=== PATIENT | male | born 1950 | race Caucasian/White ===

== ENCOUNTER → 2016-11-24 | Day surgery (SDC) | payer MEDICARE, OTHER ==
[~2016-11-24] VITALS: Ht 177.8 cm; Wt 100.0 kg
[2016-11-24] VITALS (7 sets, daily range): BP systolic 106–148; BP diastolic 60–79; PULSE 71–82; RESP 14–17; O2SAT 94–97
[~2016-11-24] MED LIST: ASCO100089 PO; ASPI-973 PO; Bupivacaine-MPF 0.5% 30 mL Inj INFILTRATE ONE; CHOL200047 PO; CeFAZolin 2 Gm/50 mL D5W Duplex Bag IV ONE; CeFAZolin Inj 2 GM in Dextrose 5% 50 ML IV ONE; CeFAZolin Inj 2 GM in IV Premix 1 EACH IV ONE; Dexamethasone 4 mg/mL Inj ONE; ELIDEL TOP; EPHEDrine Sulfate 50 mg/mL Inj IVPUSH PRN; EPHEDrine Sulfate 50 mg/mL Inj ONE; Gentamicin 40 mg/mL 2 mL Inj INJ ONE; HYDROmorphone 1 mg/mL Inj IVPUSH PRN; KETO120S TOP; LIP40 PO; Lactated Ringer's 1,000 ML IV ONE; Lactated Ringer's 1,000 ML IV SCH; Lactated Ringer's 500 ML IV PRN; MULT1CAP33 PO; MetoCLOpramide 5 mg/mL 2 mL Inj IVPUSH PRN; OMEG500C PO; Ondansetron 2 mg/mL 2 mL Inj IVPUSH PRN; Ondansetron 2 mg/mL 2 mL Inj ONE; PIME30CR TP; Phenylephrine 10,000 mCg/mL Inj IVPUSH PRN; Phenylephrine 10,000 mCg/mL Inj ONE; Propofol 10,000 mCg/mL 20 mL Inj ONE; SILD20TA14 PO; fentaNYL-PF 50 mCg/mL 2 mL Inj IVPUSH PRN; fentaNYL-PF 50 mCg/mL 2 mL Inj ONE; oxyCODONE-Acetamin 5-325 mg Tablet PO PRN
--- NOTE | 2016-11-24 07:15 | PCM.HPANE ---
Patient Data Date of Service: Nov 24, 2016 Surgeon Admitting Provider: Attending Provider:Celio Munson DPM Primary Care Physician:Danie Feng MD Other Provider:Solitario Butler Anesthesia Reason for Visit Right Foot Plantar Plate Injury, Ht/WT & BMI Height (Feet): 5 Height (Inches): 10 Weight (Kilograms): 100 Body Mass Index 31.00 Allergies Coded Allergies: No Known Allergies (Unverified , 11/16/16) Past Anesthesia History Anesthesia History: Denies:: Abnormal Airway, Anesthesia Reactions, Difficult Intubation, Fam Anesthesia Reaction, Fam Malignant Hypertherm, Malignant Hyperthermia Diabetes History Hx Diabetes?: No MRSA MRSA: No Medications Blood Thinner: Aspirin Last Dose Blood Thinner: Nov 19, 2016 Hypertension Medication: No Home Meds Incl Beta Sedrick: No Reported Medications Aspirin 81 Mg [id number] Mg PO DAILY Ref 0 11/16/16 Ocate-3 Fatty Acids (Fish Oil)500 Mg Capsule.dr1,000 Mg PO 02/25/15 Atorvastatin (Lipitor)40 Mg [id number] Mg PO DAILY Ref 0 02/25/15 Multivitamin (Multivitamins)1 Each Capsule1 Each PO 02/25/15 Cholecalciferol (Vitamin D3) (Vitamin D3)2,000 Unit Capsule2,000 Unit PO 02/25/15 Ketoconazole (Nizoral)120 Ml Vuezqyl100 Ml TOP 02/25/15 Pimecrolimus (Elidel)30 Gm Cream..g.30 Gm TP 02/25/15 Sildenafil Citrate (Sildenafil)20 Mg Ioesod09 Mg PO 02/25/15 Discontinued Reported Medications Ascorbic Acid (Vitamin C)1,000 Mg Tab.chew1,000 Mg PO DAILY Ref 0 02/25/15 [Elidel] No Conflict Check1 % Top Bid 02/02/12 History History of ENT Problems?: No HEENT History: Positive for:: Cataracts (repaired) Denies:: Abnormal Airway Difficult Intubation Dysphagia Glaucoma Hearing Problem Sinus Problem TMJ Denture Type: None Teeth Condition: Within Normal Limits Hx of Heart Problems?: No Cardiovascular History: Denies:: AICD Abdominal Aortic Aneurism Atrial Fibrillation Cardiac Surgery Chest Pain Congestive Heart Failure Coronary Artery Disease Edema Heart Murmur Hypertension (HYPERLIPIDEMIA) Irregular Heartbeat Pacemaker Peripheral Vascular Rheumatic Fever Thrombophlebitis Valvular Heart Disease Hx of Respiratory Problem?: No Respiratory History: Denies:: Asthma COPD Chest Surgery Cough Dyspnea Emphysema Hemoptysis Oxygen Administration Pneumonia Pulmonary Embolism Tuberculosis Use of C-PAP Machine Use of Inhalers / NEBS Hx Neurologic Problems?: No Neurological History: Denies:: Alzheimer's Disease CVA Dementia Headaches Parkinson's Disease Seizures TIA Hx of GI Problems?: No Gastrointestinal History: Denies:: Cirrhosis Gastroesphageal Reflux Gastrointestinal Bleeding Heartburn Hepatitis Liver Disease Hx of Problems?: No Genitourinary History: Denies:: HX of Hemodialysis HX of Peritoneal Dialysis: No Male Hx: Positive for:: Testicular Surgery (vasectomy) Denies:: Prostate Problems Scrotal Mass Skin History: Positive for:: History Skin Disorders? 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 Denies:: Blood Transfusions Hx Diabetes: No Hx Alcohol Use: NoHx Substance Use: No Smoking Status: Never Smoker Stop/Bang S-Snoring: Do You Snore Loudly: No T-Tired: feel tired, fatigued: No O-Obsered: Observed not breath: No P-Blood Pressure: treated: No B- Body Mass Index > 35 kg/m2: No A- Age over 50: Yes N- Neck Large Circumference: No G- Gender Male: Yes KEENAN Total Score: 2 KEENAN Risk Assessment: Low Risk, <3 Yes Risk Assessment Category Category 1A: Patient has history of documented sleep apnea, and HAS NOT received any narcotic, sedative or anesthesia administration during this stay. Category 1B: Patient has history of documented sleep apnea, and HAS received any narcotic , sedative or anesthesia administration during this stay Category 2: Patient has SUSPECTED Obstructive Sleep Apnea, and HAS received any narcotic , sedative or anesthesia administration during this stay. Category 3: Patient has SUSPECTED Obstructive Sleep Apnea and HAS NOT received narcotic, sedative or anesthesia administration during this stay. Category 4: Outpatient in Procedural Areas with known sleep apnea or who screen positive for High Risk via the STOP/BANG questionnaire. Exam Exam Vital Signs Vital Signs Date Time Temp Pulse Resp B/P Pulse Ox O2 Delivery O2 Flow Rate FiO2 11/24/16 06:27 36.0 71 17 141/79 96 Room Air General Appearance: Alert, Oriented X3, Cooperative, No Acute Distress HEENT/AIRWAY: MP 1 Lungs: Clear to Auscultation, Normal Air Movement Heart: Exam Unremarkable, Regular Rate/Rhythm, No Murmurs/Rubs/Gallops Meds/Labs/Diagnostics Admission Meds Current Medications Lactated Ringer's (Lr) 1,000 ml @ ud STK-MED ONCE IV Last administered on t 06:17; Start 11/24/16 at 06:17; Stop 11/24/16 at 06:18; Status DC Plan Impression Patient chart reviewed, patient interviewed and anesthestic plan with risks, benefits, and alternatives discussed, and informed consent obtained. NPO per Anesth. Guidelines: Yes ASA Physical Status: ASA2 Mod Systemic Disease Anesthetic Plan: GA Bene/Risks/Altern/Consents: Yes HP Complete Prior to Induction: Yes Salbador Lagos MD Nov 24, 2016 07:15
--- NOTE | 2016-11-24 10:15 | PCM.PODPO ---
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 Surgical timeout was observed per scope protocol. General anesthesia was administered per the anesthesiologist and the second metatarsophalangeal joint region anesthetized utilizing approximately 8 cc 1% lidocaine with epinephrine and 0.5% Marcaine without epinephrine in a one-to- one mix. A well-padded pneumatic ankle tourniquet was applied and the foot was prepped and draped in the usual aseptic manner. The foot was exsanguinated utilizing an Esmarch bandage, the cuff was inflated to 250 mmHg. Attention was directed to the dorsal second metatarsal phalangeal joint. An approximately 7 cm dorsal linear incision was made from the metatarsal neck to the intermediate phalanx of the digit. An incision was made between the EDB and EDL tendons, through the capsule and sub-capsular dissection performed exposing the joint. Collateral ligaments of the second metatarsal head were divided. Next the plantar plate was freed with a McGlamry elevator. A while osteotomy was performed the capital fragment displaced 1 cm and fixated with a vertically oriented pin. A second pin parallel to the first was placed in the mid proximal phalanx and self-retaining distractor applied opening up the joint. The dorsal cartilaginous shelf was conservatively remodeled with a rongeur forcep area the plantar plate was noted to be intact but severely attenuated and the joint was quite unstable with a marked positive digital Joanna's. The ligament was sectioned at its proximal phalangeal base insertion, the base of the phalanx was roughened with a rasp. Approximately 2-3 mm of distal attenuated plantar plate was resected. Utilizing the scorpion suture passing device to locking sutures were placed in the plantar plate. The appropriate crossed holes were placed at the proximal phalangeal base. A fragment was relocated distally, appropriate parabola was confirmed fluoroscopically and the osteotomy fixated utilizing 2 self-tapping snap off cortical screws provided with the arthritic CPR set. Fixation was assessed fluoroscopically, the capital fragment showed good alignment and length, and was stable and well fixated clinically. The sutures were passed in a crosswise fashion. At this time the site was copiously irrigated and attention directed to the proximal interphalangeal joint. A linear tendon splitting tenotomy and capsulotomy was performed at the PIPJ level and the joint exposed. Articular surfaces were resected utilizing pad were instrumentation and feathered smooth utilizing reciprocal planing technique. Multiple K wire fenestrations were made in each surface. A 0.045 inch K wire was inserted into the intermediate phalangeal base exiting the toe and the pin driven retrogradely crossing the arthrodesis site with good bone to bone coaptation noted. Attention was then directed to the plantar plate sutures and with the digit plantar flexed the sutures were tied on the dorsum of the proximal phalangeal base attaining good tightening of the plantar plate and stability to digital Joanna's. Sutures were cut and the K wire advanced into the metatarsal head to maintain digital alignment. Site was copiously irrigated with antibiotic solution. The K wire was bent and cut and capped distally. Capsular tissues were repaired with 4-0 Vicryl, tendons repaired with 4-0 Vicryl and a linear fashion and skin with 4-0 Prolene. The tourniquet was released normal perfusion returned promptly. Antibiotic ointment Adaptic dressing and mildly compressive gauze bandage was applied, the patient was extubated uneventfully and left the operating suite in apparently satisfactory condition. There were no complications. Grafts, Implants: Implants-See Implant Record Complications There were no periprocedural complications identified. Condition Stable Anesthetic Administered: GA Drains: None Catheters: None Output, Estimated Blood Loss: 5 Blood Admin during surgery: No Surgical Cast or Splint: Post-op Boot Surgical Specimen Removed: No Specimen sent to Pathology: No Post Operative Plan Written and verbal postop instructions have been getting an skin reviewed, patient may bear weight in postoperative boot on the heel only and will be seen in 5 days for wound check and follow-up. Celio Munson DPM Nov 24, 2016 10:15
== END | disposition home or self-care (01) ==
LOC: SAS 06:07
PROVIDERS: ATTEND Podiatrist
DX: S89.91XD Unspecified injury of right lower leg, subsequent encounter (principal); M20.41 Other hammer toe(s) (acquired), right foot; Z79.82 Long term (current) use of aspirin; Z79.899 Other long term (current) drug therapy; X58.XXXD Exposure to other specified factors, subsequent encounter; Y92.9 Unspecified place or not applicable
CPT/HCPCS: 28308; 28313; J0690; J1100; J1580; J1885; J2370; J2405; J2704; J3010; J7120